=== PATIENT | female | born 1960 | race Caucasian/White ===

== ENCOUNTER 2016-10-06 16:01 | Emergency (ER) | payer OTHER ==
[~2016-10-06] VITALS: Ht 162.6 cm; Wt 67.8 kg
[2016-10-06 16:07] VITALS: BP 114/71
--- NOTE | 2016-10-06 18:35 | NUR ---
PATIENT PRESENTS TO ED WITH BURNING UPON URINATION X 6 DAYS . PT STATES SHE HAS HAD FEVERS, FREQUENCY IN URINATION, AND BLOOD IN HER URINE, C/O LOWER BACK PAIN . DENIES N/V/D; SKIN IS PINK/WARM/DRY; AAOX4 WITH EVEN AND STEADY GAIT;HR EVEN AND REGULAR; PT DENIES ANY CP, SOB, OR COUGH AT THIS TIME; PATIENT STATES PAIN OF 10/10 AT THIS TIME; VSS; PATIENT POSITIONED FOR COMFORT; HOB ELEVATED; BEDRAILS UP X1; BED DOWN. ER MD MADE AWARE OF PT STATUS.
--- NOTE | 2016-10-06 18:37 | NUR ---
DR TURNER AT BEDSIDE
[2016-10-06] MEDS ORDERED: CIPROFLOXACIN 250 MG TAB PO ONE (18:45)
[2016-10-06 19:50] VITALS: BP 117/78
--- NOTE | 2016-10-06 19:50 | NUR ---
Patient discharged with v/s stable. Written and verbal after care instructions given and explained. Patient alert, oriented and verbalized understanding of instructions. Ambulatory with steady gait. All questions addressed prior to discharge. ID band removed. Patient advised to follow up with PMD THIS FOR REVALUATION OR RETURN TO ER IF CONDITION WORSENS. Rx of CIPROFLAXACIN HYDROCHLORIDE given. Patient educated on indication of medication including possible reaction and side effects. Opportunity to ask questions provided and answered.
== END 2016-10-06 19:50 | disposition home or self-care (01) ==
LOC: MED 16:01
DX: N39.0 Urinary tract infection, site not specified (principal)
CPT/HCPCS: 81002; 81025; 99283

== ENCOUNTER 2016-12-11 02:00 | Emergency (ER) | payer OTHER ==
[~2016-12-11] VITALS: Ht 162.6 cm; Wt 62.6 kg
[2016-12-11 02:07] VITALS: BP 138/82
--- NOTE | 2016-12-11 02:12 | NUR ---
PT TAKEN TO BED 7
--- NOTE | 2016-12-11 02:15 | NUR ---
PATIENT PRESENTS TO ED WITH C/O BODY ACHES ON RIGHT ARM AND RIGHT LEG X 2 DAYS WITH EDDY 8/10 . PT STATES NO TRAUMA TO THE BODY PARTS .PT DENIES N/D; SKIN IS PINK/WARM/DRY; AAOX4 WITH EVEN AND STEADY GAIT; LUNGS CLEAR BL; HR EVEN AND REGULAR; PT DENIES ANY FEVER, CP, SOB, OR COUGH AT THIS TIME; PATIENT STATES PAIN OF 8/10 AT THIS TIME; VSS; PATIENT POSITIONED FOR COMFORT; HOB ELEVATED; BEDRAILS UP X2; BED DOWN. ER MD MADE AWARE OF PT STATUS.
--- NOTE | 2016-12-11 02:51 | NUR ---
Dr. Spence evaluating patient at bedside.
[2016-12-11] MEDS ORDERED: NACL 0.9% 1,000 ML IV ONE (03:00)
[2016-12-11] MEDS ORDERED: KETOROLAC 60 MG/2 ML VIAL IM ONE (03:05)
[2016-12-11] MEDS ORDERED: ONDANSETRON 4 MG ODT PO ONE (03:05)
--- NOTE | 2016-12-11 03:36 | NUR ---
Patient discharged with v/s stable. Written and verbal after care instructions given and explained. Patient alert, oriented and verbalized understanding of instructions. Ambulatory with steady gait. All questions addressed prior to discharge. ID band removed. Patient advised to follow up with PMD. Rx of CIPRO 500MG, MOTRIN 600MG AND ZOFRAN 8MG given. Patient educated on indication of medication including possible reaction and side effects. Opportunity to ask questions provided and answered.
[2016-12-11 03:37] VITALS: BP 127/79
== END 2016-12-11 03:36 | disposition home or self-care (01) ==
LOC: MED 02:00
DX: N39.0 Urinary tract infection, site not specified (principal)
CPT/HCPCS: 81002; 96372; 99283; J1885; S0119

== ENCOUNTER 2018-12-23 14:37 | Emergency (ER) | payer OTHER, MEDICAID ==
[~2018-12-23] VITALS: Ht 165.1 cm; Wt 76.3 kg
[2018-12-23 14:40] VITALS: BP 140/55
--- NOTE | 2018-12-23 15:00 | NUR ---
PATIENT PRESENTS TO ED WITH C/O LT SIDED FACIAL PAIN RADIATING TO ENTIRE LT SIDE OF BODY X 1 DAY. DENIES N/V; PT IS ALERT AND ORIENTED TO PERSON, PLACE, TIME AND EVENT. CLEAR SPEECH. NO SMILE DEFICIT NOTED. NO FACIAL DROOP NOTED. PUPILS EQUAL AND REACTIVE TO LIGHT BILATERALLY. EVEN AND STEADY GAIT; BILATERAL HAND CONTROLS TECHNICIAN EQUAL. BILATERAL FOOT PUSH EQUAL. PATIENT STATES PAIN OF 7/10 AT THIS TIME; VSS;POSITIONED FOR COMFORT; HOB ELEVATED; BEDRAILS UP X1; BED DOWN. PENDING ER MD MADE EVALUATION.
--- NOTE | 2018-12-23 15:38 | NUR ---
PT TAKEN TO CT SCAN VIA YOSHI
--- NOTE | 2018-12-23 16:00 | NUR ---
PT BACK FROM CT-SCAN
[2018-12-23 16:16] LABS: BASOPHILS # (AUTO) 0.1 K/uL (0.00-0.22); BASOPHILS % (AUTO) 0.7 % (0.0-2.0); EOSINOPHILS # (AUTO) 0.1 K/uL (0-0.4); HEMATOCRIT 37.1 % (36-48); HEMOGLOBIN 12.4 g/dL (12.0-16.0); LYMPHOCYTES # (AUTO) 2.7 K/uL (2.5-16.5); LYMPHOCYTES % (AUTO) 30.4 % (20.5-51.1); MEAN CORPUSCULAR HEMOGLOBIN 29 pg (27-31); MEAN CORPUSCULAR HGB CONC 34 g/dL (33-37); MEAN CORPUSCULAR VOLUME 85.4 fL (80-94); MONOCYTES # (AUTO) 0.6 K/uL (0.8-1.0); MONOCYTES % (AUTO) 6.3 % (1.7-9.3); NEUTROPHILS # (AUTO) 5.6 K/uL (1.8-7.7); NEUTROPHILS % (AUTO) 61.6 % (42.2-75.2); PLATELET COUNT (AUTO) 259 K/uL (140-450); RED BLOOD CELL COUNT(AUTO) 4.34 MIL/uL (4.20-5.40); RED CELL DISTRIBUTION WIDTH 13.2 % (11.6-13.7)
[2018-12-23 16:21] LABS: APPEARANCE,URINE CLEAR (CLEAR); BILIRUBIN,URINE NEGATIVE (NEGATIVE); BLOOD, URINE TRACE-L (NEGATIVE); COLOR,URINE YELLOW (YELLOW); LEUKOCYTE ESTERASE ,URINE NEGATIVE (NEGATIVE); NITRITE, URINE NEGATIVE (NEGATIVE); PH,URINE 6.5 (5.0-9.0); UGLUCOSE NEGATIVE (NEGATIVE)
[2018-12-23 16:30] LABS: RBC,URINE 0-5 /HPF (0-5); WBC,URINE 0 /HPF (0-5)
[2018-12-23 16:35] LABS: ALBUMIN 3.6 g/dL (3.4-5.0); CARBON DIOXIDE 28.8 mmol/L (21-32); CREATININE 0.7 mg/dL (0.6-1.3); POTASSIUM 3.8 mmol/L (3.5-5.1); TOTAL BILIRUBIN 0.2 mg/dL (0.0-1.0)
[2018-12-23 18:36] VITALS: BP 124/60
--- NOTE | 2018-12-23 18:36 | NUR ---
Patient discharged with v/s stable. Written and verbal after care instructions given and explained. Patient alert, oriented and verbalized understanding of instructions. Ambulatory with steady gait. All questions addressed prior to discharge. ID band removed. Patient advised to follow up with PMD. Rx of Motrin, Reglan, Benadryl given. Patient educated on indication of medication including possible reaction and side effects. Opportunity to ask questions provided and answered.
== END 2018-12-23 18:36 | disposition home or self-care (01) ==
LOC: MED 14:37
DX: G43.909 Migraine, unspecified, not intractable, without status migrainosus (principal); R10.9 Unspecified abdominal pain; F41.9 Anxiety disorder, unspecified; Z98.890 Other specified postprocedural states
CPT/HCPCS: 36415; 70450; 71045; 80053; 81001; 81025; 83690; 84484; 85025; 93005; 99284

== ENCOUNTER 2019-01-02 23:06 | Emergency (ER) | payer OTHER, MEDICAID ==
[~2019-01-02] VITALS: Ht 165.1 cm; Wt 65.8 kg
[2019-01-02 23:08] VITALS: BP 130/90
--- NOTE | 2019-01-02 23:08 | NUR ---
TO BED # 4 AMBULATORY
--- NOTE | 2019-01-02 23:15 | NUR ---
PT IS A 58 Y/O FEMALE WHO PRESENTS TO THE ED C/O GENERALIZED ABD PAIN. PER PT SX'S HAVE BEEN GOING ON X3 DAYS. PT REPORTS 10/10 BURNING ABD PAIN THAT DOES NOT RADIATE, BOWEL SOUNDS PRESENT IN ALL 4 QUADRANTS. PT DENIES CP, SOB, REPORTS VOMITING DENIES NAUSEA/DIARRHEA. PT AWAKE AND ALERT, RR EVEN/UNLABORED. PT REPOSITIONED FOR COMFORT, BED IN LOWEST POSITION. ER MD DR. NOLASCO NOTIFIED. WILL CONTINUE TO MONITOR. DENIES PMH NKA
[2019-01-03] MEDS ORDERED: ALUMINUM HYD/MAG/SIMETHICONE 30 ML UDC PO ONE
[2019-01-03] MEDS ORDERED: LIDOCAINE VISCOUS 2% 20 ML UDC PO ONE
[2019-01-03] MEDS ORDERED: ONDANSETRON 4 MG/2 ML VIAL IVP ONE (01:10)
[2019-01-03] MEDS ORDERED: NACL 0.9% 1,000 ML IV ONE (01:10)
[2019-01-03] MEDS ORDERED: MORPHINE SULFATE 4 MG/ML SYR IVP ONE (01:10)
[2019-01-03 01:22] LABS: BASOPHILS % (AUTO) 0.4 % (0.0-2.0); EOSINOPHILS # (AUTO) 0.3 K/uL (0-0.4); EOSINOPHILS % (AUTO) 2.5 % (0.0-4.0); HEMATOCRIT 37.6 % (36-48); HEMOGLOBIN 12.5 g/dL (12.0-16.0); LYMPHOCYTES # (AUTO) 4.8 K/uL (2.5-16.5); LYMPHOCYTES % (AUTO) 45.7 % (20.5-51.1); MEAN CORPUSCULAR HEMOGLOBIN 28 pg (27-31); MEAN CORPUSCULAR HGB CONC 33 g/dL (33-37); MEAN CORPUSCULAR VOLUME 85.2 fL (80-94); MONOCYTES # (AUTO) 0.9 K/uL (0.8-1.0); MONOCYTES % (AUTO) 8.7 % (1.7-9.3); NEUTROPHILS # (AUTO) 4.5 K/uL (1.8-7.7); NEUTROPHILS % (AUTO) 42.7 % (42.2-75.2); PLATELET COUNT (AUTO) 257 K/uL (140-450); RED BLOOD CELL COUNT(AUTO) 4.41 MIL/uL (4.20-5.40); RED CELL DISTRIBUTION WIDTH 13.5 % (11.6-13.7); WHITE BLOOD COUNT (AUTO) 10.5 K/uL (4.8-10.8)
--- NOTE | 2019-01-03 01:30 | NUR ---
LAB AT BEDSIDE.
[2019-01-03 01:32] LABS: ANION GAP 12.3 (8-16); CREATININE 0.7 mg/dL (0.6-1.3); POTASSIUM 4.3 mmol/L (3.5-5.1)
[2019-01-03 01:37] LABS: ALBUMIN 3.8 g/dL (3.4-5.0); TOTAL BILIRUBIN 0.3 mg/dL (0.0-1.0)
[2019-01-03] MEDS ORDERED: FAMOTIDINE 20 MG/2 ML VIAL IVP ONE (02:05)
--- NOTE | 2019-01-03 02:45 | NUR ---
PT REPORTS FEELING MUCH BETTER AND DENIES PAIN/DISCOMFORT AT THIS TIME. FLUIDS STILL RUNNING.
[2019-01-03 03:10] VITALS: BP 125/58
--- NOTE | 2019-01-03 03:10 | NUR ---
Patient discharged with v/s stable. Written and verbal after care instructions given and explained. Patient alert, oriented and verbalized understanding of instructions. Ambulatory with steady gait. All questions addressed prior to discharge. ID band removed. Patient advised to follow up with PMD. Rx of Pepcid given. Patient educated on indication of medication including possible reaction and side effects. Opportunity to ask questions provided and answered. Pt discharged by Dr. Zuleta.
== END 2019-01-03 03:10 | disposition home or self-care (01) ==
LOC: MED 23:06
DX: K29.70 Gastritis, unspecified, without bleeding (principal); Z90.49 Acquired absence of other specified parts of digestive tract
CPT/HCPCS: 36415; 80053; 81002; 83690; 85025; 96374; 96375; 99283; J2270; J2405; J3490; J7030

== ENCOUNTER 2019-08-07 19:00 | Emergency (ER) | payer OTHER, MEDICAID ==
[~2019-08-07] VITALS: Ht 165.1 cm; Wt 76.2 kg
[2019-08-07 19:15] VITALS: BP 136/91
--- NOTE | 2019-08-07 19:20 | NUR ---
PT AMBULATED TO BED #12
--- NOTE | 2019-08-07 19:25 | NUR ---
PT 59 Y/O FEMALE BIB SELF FOR C/O PAINFUL URINATION AND 04/14 FLANK PAIN ON L AND R SIDE X "A FEW DAYS." PT ADMITS TO URINARY FREQUENCY AND LOWER ABD PAIN ON L AND R SIDE 04/14. ABD IS SOFT, ROUND, AND NON TENDER. PT DENIES COUGH, DENIES N/V/D. MED HX: NONE ALLERGIES: NONE
--- NOTE | 2019-08-07 19:32 | NUR ---
DR. CALI AT BEDSIDE.
[2019-08-07] MEDS ORDERED: KETOROLAC 30 MG/ML VIAL IM ONE (19:35)
[2019-08-07 19:58] LABS: APPEARANCE,URINE CLEAR (CLEAR); BILIRUBIN,URINE NEGATIVE (NEGATIVE); BLOOD, URINE 1+ (NEGATIVE); COLOR,URINE YELLOW (YELLOW); LEUKOCYTE ESTERASE ,URINE NEGATIVE (NEGATIVE); NITRITE, URINE NEGATIVE (NEGATIVE); PH,URINE 7.5 (5.0-9.0); UGLUCOSE NEGATIVE (NEGATIVE)
--- NOTE | 2019-08-07 20:22 | NUR ---
DR. CALI AT BEDSIDE.
[2019-08-07 20:26] LABS: RBC,URINE 0-5 /HPF (0-5); WBC,URINE 0-5 /HPF (0-5)
--- NOTE | 2019-08-07 20:28 | NUR ---
LAB AT BEDSIDE.
--- NOTE | 2019-08-07 20:34 | NUR ---
PT TAKEN TO CT VIA W/C.
[2019-08-07 20:44] LABS: BASOPHILS % (AUTO) 0.6 % (0.0-2.0); EOSINOPHILS # (AUTO) 0.2 K/uL (0-0.4); EOSINOPHILS % (AUTO) 1.8 % (0.0-4.0); HEMATOCRIT 36.9 % (36-48); HEMOGLOBIN 12.2 g/dL (12.0-16.0); LYMPHOCYTES # (AUTO) 3.5 K/uL (2.5-16.5); LYMPHOCYTES % (AUTO) 40.9 % (20.5-51.1); MEAN CORPUSCULAR HEMOGLOBIN 30 pg (27-31); MEAN CORPUSCULAR HGB CONC 33 g/dL (33-37); MEAN CORPUSCULAR VOLUME 90.4 fL (80-94); MONOCYTES # (AUTO) 0.7 K/uL (0.8-1.0); MONOCYTES % (AUTO) 8.4 % (1.7-9.3); NEUTROPHILS # (AUTO) 4.2 K/uL (1.8-7.7); NEUTROPHILS % (AUTO) 48.3 % (42.2-75.2); PLATELET COUNT (AUTO) 253 K/uL (140-450); RED BLOOD CELL COUNT(AUTO) 4.08 MIL/uL (4.20-5.40); RED CELL DISTRIBUTION WIDTH 13.4 % (11.6-13.7); WHITE BLOOD COUNT (AUTO) 8.6 K/uL (4.8-10.8)
[2019-08-07 20:55] LABS: ANION GAP 10.6 (8-16); CARBON DIOXIDE 28.9 mmol/L (21-32); CREATININE 0.7 mg/dL (0.6-1.3); POTASSIUM 3.5 mmol/L (3.5-5.1)
--- NOTE | 2019-08-07 21:33 | NUR ---
DR CALI AT BEDSIDE.
[2019-08-07 21:45] VITALS: BP 136/91
--- NOTE | 2019-08-07 21:50 | NUR ---
Patient discharged with v/s stable. Written and verbal after care instructions given and explained. Patient alert, oriented and verbalized understanding of instructions. Ambulatory with steady gait. All questions addressed prior to discharge. ID band removed. Patient advised to follow up with PMD. Rx of PHENAZOPYRIDINE given. Patient educated on indication of medication including possible reaction and side effects. Opportunity to ask questions provided and answered.
== END 2019-08-07 21:45 | disposition home or self-care (01) ==
LOC: MED 19:00
DX: R30.0 Dysuria (principal); R10.30 Lower abdominal pain, unspecified; Z98.890 Other specified postprocedural states
CPT/HCPCS: 36415; 74176; 80048; 81001; 85025; 96372; 99284; J1885

== ENCOUNTER 2019-12-20 22:10 | Emergency (ER) | payer OTHER, MEDICAID ==
[~2019-12-20] VITALS: Ht 162.6 cm; Wt 77.1 kg
[2019-12-20 22:20] VITALS: BP 124/87
--- NOTE | 2019-12-20 22:40 | NUR ---
59 YEAR OLD FEMALE COMPLAINS OF ANXIETY X 1.5 MONTHS, STATES SHE USED TO HAVE MEDICATIONS PRESCRIBED BY PCP BUT HE RETIRED AND HAS NOT BEEN TAKING MEDS. PT ALSO COMPLAINS OF UPPER EPIGASTRIC PAIN BUT DENIES N/V/D. PT AOX4, BREATHING EVEN AND UNLABORED, SKIN WARM AND DRY. BED IN LOWEST POSITION, LOCKED, BED RAIL UPX1. PMH - HYPERTHYROID, ANXIETY ALLERGIES - NKA
--- NOTE | 2019-12-20 23:09 | NUR ---
PT BACK FROM XRAY.
[2019-12-20] MEDS ORDERED: LORazepam 2 MG/ML VIAL IM ONE (23:10)
--- NOTE | 2019-12-20 23:30 | NUR ---
Pt for d/c per Dr Arevalo order. Patient discharged with v/s stable. Written and verbal after care instructions given and explained. Patient alert, oriented and verbalized understanding of instructions. Ambulatory with steady gait. All questions addressed prior to discharge. ID band removed. Patient advised to follow up with PMD. Rx of AMBIEN AND ZANAX given. Patient educated on indication of medication including possible reaction and side effects. Opportunity to ask questions provided and answered.
[2019-12-20 23:31] VITALS: BP 127/84
== END 2019-12-20 23:30 | disposition home or self-care (01) ==
LOC: MED 22:10
DX: F41.9 Anxiety disorder, unspecified (principal); F41.0 Panic disorder [episodic paroxysmal anxiety]; G47.00 Insomnia, unspecified; Z96.651 Presence of right artificial knee joint
CPT/HCPCS: 74022; 96372; 99283; J2060